=== PATIENT | female | born 1965 | race Caucasian/White ===

== ENCOUNTER 2022-07-28 07:58 | Outpatient (CLI) | payer OTHER, SELFPAY ==
--- NOTE | 2022-07-28 08:15 | CRLHL7_ITS ---
For Patients: As a result of the Cures Act, medical imaging exams and procedure reports are released immediately into your electronic medical record. You may view this report before your referring provider. If you have questions, please contact your health care provider. BILATERAL SCREENING MAMMOGRAM WITH COMPUTER-AIDED DETECTION AND TOMOSYNTHESIS TECHNIQUE: CC and MLO views were obtained. These mammographic images have been obtained using full-field digital technique. These mammographic images were interpreted with the benefit of computer-aided detection. Breast Tomosynthesis was used in this interpretation. COMPARISON FILM: 06/20/20, 05/09/19, 04/29/18. FINDINGS: There are scattered areas of fibroglandular density IMPRESSION: There is no radiographic evidence for malignancy. ASSESSMENT: BI-RADS Category 1: Negative RECOMMENDATION: Routine screening mammogram in 1 year. A lay language report of this examination will be provided to the patient. Albert Guerra M.D. Diagnostic Radiologist [email or web address] Transcribed: 2:48 p.mConstantino loredo/Dictated by: Albert Guerra MD @ 07/31/2022 9:30:00 AM (Electronically Signed)
== END 2022-07-28 07:59 | disposition home or self-care (01) ==
DX: Z12.31 Encounter for screening mammogram for malignant neoplasm of breast (principal)
CPT/HCPCS: 77063; 77067

== ENCOUNTER 2023-05-14 08:40 | Outpatient (CLI) | payer OTHER, SELFPAY ==
--- OUTSIDE RECORDS SUMMARY | 2023-05-15 10:46 | XMS_ITS | Clinical Summary ---
Author Name Unknown Organization [facility] Address [address] [place] [address] [place] [address] Care Team Providers Care Audit Officer Name Role Phone Margot Ortega PA-C Primary Care Provider + [facility] Allergies Active Allergy Reactions Criticality Noted Date Comments Ceftriaxone Rash Medium 05/20/2018 Ciprofloxacin Rash Medium 05/20/2018 Lisinopril Hives Medium 12/18/2015 Medications Medication Sig Dispensed Refills Start Date End Date Status NO MEDICATIONS 0 Active Active Problems Problem Noted Date Diagnosed Date Allergic rhinitis 05/13/2018 Degeneration of lumbar or lumbosacral interverte bral disc 05/13/2018 History of basal cell carcinoma (BCC) of skin Major depressive disorder, single episode 2012 Adjustment reaction 04/27/2009 Pure hypercholesterolemia 04/27/2009 Polycystic ovaries 04/27/2009 Female stress incontinence 04/27/2009 Essential hypertension 04/27/2009 Resolved Problems Problem Noted Date Diagnosed Date Resolved Date Basal cell carcinoma of skin 05/13/2018 05/13/2018 Immunizations Name Administration Dates Next Due Tdap >7 yrs 12/30/2009,05/26/2008 Family History Medical History Relation Comments Other Disease Brother Crohns Disease Diabetes Father Other Disease Father Pacemaker Breast Cancer Maternal Aunt Arthritis Mother Rheumatoid arthr itis Heart Disease Mother Cardiomyopathy Other Disease Mother Skin cancer Relation Status Comments Brother Father Maternal Aunt Alive Mother Social History Tobacco Use Types Packs/Day Years Used Date Smoking Tobacco: Never Smokeless Tobacco: Never Alcohol Use Standard Drinks/Week Comments Yes 0 (1 standard drink = 0.6 oz pur e alcohol) occasional Sex and Gender Information Value Date Recorded Sex Assigned at Not on file Gender Identity Not on file Sexual Orientation Not on file Last Filed Vital Signs Vital Sign Reading Time Taken Comments Blood Pressure 129/99 01/22/2023 12:55 PM CDT Pulse 95 01/22/2023 12:55 PM CDT Temperature 36.3 ??C (97.4 ??F) 01/22/2023 12:40 PM C DT Respiratory Rate 16 01/22/2023 12:55 PM CDT Oxygen Saturation 98% 01/22/2023 12:55 PM CDT Inhaled Oxygen Concentration - - Weight 65.8 kg (145 lb) 11/17/2022 11:41 AM CDT Height 160 cm (5' 3) 11/17/2022 11:41 AM CDT Body Mass Index 25.69 11/17/2022 11:41 AM CDT Plan of Treatment Health Maintenance Due Date Last Done Comments Hepatitis C Screening 1965 COVID-19 Vaccine (#1) 1966 Anxiety Screening (CONCEPCIÓN-2) 1967 Depression Follow-Up (PHQ-9) 1967 Zoster Vaccine (1 of 2) 2016 Pap Smear 12/20/2017 12/20/2012 (Prev iously completed) Lipid Screening 05/25/2018 05/25/2017 Adult Tetanus Booster 12/31/2019 12/30/2009, 009 Diabetes Screening 05/18/2021 05/18/2018, 0 05/25/2017, 01/21/2016 Mammogram Screening 06/20/2021 06/20/2020, 05/12/2019, 04/29/2018, Additional history exists Influenza Vaccine (#1) 2022 9 (Declined), 05/13/2018 (Declined) Yearly Review of HCD 10/21/2023 10/21/2022, 09/05/2022, 05/13/2018, Additional history exists Colonoscopy 01/22/2033 01/22/2023, 10/16/2022 Pneumococcal <65 Aged Out No longer e ligible based on patient's age to complete this topic Care Teams Audit Officer Relationship Specialty Start Date End Date Margot Ortega, PAAncaC [address] [place] [id number] PCP - General Family Medicine 10/16/22 [facility] [address] [place] [id number] PCP - Primary Care Clinic 05/06/23
--- OUTSIDE RECORDS SUMMARY | 2023-05-15 10:47 | XMS_ITS | Encounter Summary ---
Author Name Unknown Organization [facility] Address [address] [place] [address] [place] [address] Care Team Providers Care Picker Machine Operator Name Role Phone [facility] Margot Ortega PA-C Primary Care Provider + Reason for Referral * (Routine) - Open Specialty Diagnoses / Procedures Referred By Contac t Referred To Contact Procedures DIET INSTRUCTION Dewey Pollock MD [address] [place] [address] Dr Kaufman [facility] [place] [address] Referral ID Status Reason Start Date Expiration Date Visits Re quested Visits Authorized [id number] Open 01/22/2023 1 1 * (Routine) - Open Specialty Diagnoses / Procedures Referred By Contac t Referred To Contact Procedures No driving Dewey Pollock MD [address] [place] [address] [place] [address] Referral ID Status Reason Start Date Expiration Date Visits Re quested Visits Authorized [id number] Open 01/22/2023 1 1 * (Routine) - Open Specialty Diagnoses / Procedures Referred By Contac t Referred To Contact Procedures MEDICATIONS Dewey Pollock MD [address] [place] [address] [place] [address] Referral ID Status Reason Start Date Expiration Date Visits Re quested Visits Authorized [id number] Open 01/22/2023 1 1 * (Routine) - Open Specialty Diagnoses / Procedures Referred By Contac t Referred To Contact Procedures The Exam / Treatment you had Today Dewey Pollock MD [address] [place] [address] Dr Kaufman [facility] [place] [address] Referral ID Status Reason Start Date Expiration Date Visits Re quested Visits Authorized [id number] Open 01/22/2023 1 1 * (Routine) - Open Specialty Diagnoses / Procedures Referred By Contac t Referred To Contact Procedures Discharge Dewey Pollock MD [address] [place] [address] Dr Kaufman [facility] [place] [address] Referral ID Status Reason Start Date Expiration Date Visits Re quested Visits Authorized [id number] Open 01/22/2023 1 1 Encounter Details Date Type Department Care Team (Latest Contact Info) Description 01/22/2023 10:54 AM CDT - 01/22/2023 1:32 PM CDT Hospital Encounter [place] [address] [place] [address] Dewey Pollock MD [address] [place] [address] [place] [address] Discharge Disposition: Returning Home/Self Care Social History Tobacco Use Types Packs/Day Years Used Date Smoking Tobacco: Never Smokeless Tobacco: Never Alcohol Use Standard Drinks/Week Comments Yes 0 (1 standard drink = 0.6 oz pur e alcohol) occasional Sex and Gender Information Value Date Recorded Sex Assigned at Not on file Gender Identity Not on file Sexual Orientation Not on file documented as of this encounter Last Filed Vital Signs Vital Sign Reading [...] Mass Index 25.69 11/17/2022 11:41 AM CDT documented in this encounter Discharge Instructions * Discharge Instructions* Maria Guadalupe Bustillo RN - 01/22/2023 11:29 AM CDT POST COLONOSCOPY INSTRUCTIONS You have just completed your colonoscopy. Upon discharge, plan to go home and rest. Someone needs to drive you home because of the sedation used. Most patients are dehydrated and hungry. Continue to drink plenty of liquids, making sure it is notonly water. Eat a light meal and eat slowly. You may still have liquids stools for up to 2 days, or you may not have any stools for 2 days. If a biopsy or polyps were taken, you will receive a call in 1-2 weeks with the results. If any polyps were removed DO NOT take Aspirin, Ibuprofen, or blood thinning medications for 7 days. You make take Tylenol. You will be notified when it is time to schedule again. We recommend a daily fiber supplement to all of our patients. This is not a medication; rather it is an gbrg-yhu-xmglwdk supplement that everyone should take. Stay away from pill forms because they are expensive and contain other additives. We recommend Benefiber, Hydrocil, or freshly ground Goldenflax seed mixed with a large glass of water or juice in the morning. Questions or concerns can be directed to your physician at the following numbers: Chano Buchanan and Pooler: Call your provider for the following: Uncontrolled abdominal pain Fevers over 101 degrees Vomiting Black or bloody bowel movements documented in this encounter Medications at Time of Discharge Medication Sig Dispensed Refills Start Date End Date NO MEDICATIONS 0 documented as of this encounter Nursing Notes * Maria Guadalupe Bustillo RN - 01/22/2023 1:31 PM CDT Katlin Curtis 1965 [id number] Discharged ambulatory to home at 1331 escorted by father Discharge information and arrangements included: review of written discharge instructions Patient expressed understanding of information.. * Daphnie Kent RN - 11/17/2022 11:42 AM CDT RN reviewed hx in the EMR <1 yr old. MD to update and RN will review and verify DOS. documented in this encounter Plan of Treatment Not on file documented as of this encounter Procedures Procedure Name Priority Date/Time Associated Diagnosis Comments MS COLONOSCOPY FLX DX W/COLLJ SPEC WHEN PFRMD 01/22/2023 12:16 PM CDT Screen for colon cancer ASC COLONOSOPY 01/22/2023 12:11 PM CDT documented in this encounter Results * ASC COLONOSOPY (01/22/2023 12:11 PM CDT) 01/22/2023 12:1 1 PM CDT Narrative TEST - 01/23/2023 11:38 AM CDT Patient Name: Katlin Curtis Procedure Date: 01/22/2023 12:11 PM Date of : 1965 Attending MD: Dewey Pollock MD, Instrument Name: -10 Procedure: ? Colonoscopy Indications: ? High risk colon cancer surveillance: Personal history ? of colonic polyps Patient Profile: ? Last Colonoscopy: 5 years ago. Attempted colonscopy ? last Veronica but could not proceed due to inadequate prep. Providers: ? Dewey Pollock MD (Doctor) [address] ? [place] [address] Referring Provider ? Margot Kirby (Referring MD) Requesting Provider: ?? Medicines: ? See the Anesthesia note for documentation of the ? administered medications Complications: ? No immediate complications. Procedure: ? Pre-Anesthesia Assessment: ? - Prior to the procedure, a History and Physical was ? performed, and patient medications and allergies were ? reviewed. The patient is competent. The risks and ? benefits of the procedure and the sedation options and ? risks were discussed with the patient. All questions ? were answered and informed consent was obtained. ? Patient identification and proposed procedure were ? verified by the physician, the nurse, the manager knowledge ? and the health technician in the procedure room. Mental ? Status Examination: alert and oriented. Airway ? Examination: normal oropharyngeal airway and neck ? mobility. Respiratory Examination: clear to ? auscultation. CV Examination: normal. Prophylactic ? Antibiotics: The patient does not require prophylactic ? antibiotics. Prior Anticoagulants: The patient has ? taken no anticoagulant or antiplatelet agents. ASA ? Grade Assessment: II - A patient with mild systemic ? disease. After reviewing the risks and benefits, the ? patient was deemed in satisfactory condition to ? undergo the procedure. The anesthesia plan was to use ? monitored anesthesia care (MAC). Immediately prior to ? administration of medications, the patient was ? re-assessed for adequacy to receive sedatives. The ? heart rate, respiratory rate, oxygen saturations, ? blood pressure, adequacy of pulmonary ventilation, and ? response to care were monitored throughout the ? procedure. The physical status of the patient was ? re-assessed after the procedure. ? - After reviewing the risks and benefits, the patient ? was deemed in satisfactory condition to undergo the ? procedure. ? - in an ambulatory setting. ? - This assessment was completed at 12:00 PM, prior to ? the administration of sedation. ? - Patient was seen and evaluated during COVID- 19 ? pandemic. Current hospital procedure room guidelines ? specific to COVID-19 will be followed as indicated. ? After I obtained informed consent, the scope was ? passed under direct vision. Throughout the procedure, ? the patient's blood pressure, pulse, and oxygen ? saturations were monitored continuously. The ? Colonoscope was introduced through the anus and ? advanced to the cecum, identified by the appendiceal ? orifice, ileocecal valve and palpation. The ? colonoscopy was performed without difficulty. The ? patient tolerated the procedure well. Findings: ? The perianal and digital rectal examinations were normal. ? Medium-mouthed diverticula were found in the sigmoid colon and ? descending colon. Impression: ?- Diverticulosis in the sigmoid and descending colon. ? - No specimens collected. Recommendation: ?- Repeat colonoscopy in 10 years for screening ? purposes. ? - Return to primary care physician as previously ? scheduled. Dewey Pollock MD 01/23/2023 11:38:05 AM This report has been signed electronically.Dewey Pollock MD Number of Addenda: 0 Note Initiated On: 01/22/2023 12:11 PM Scope Withdrawal Time 0 hours 6 minutes 35 seconds Total Procedure Duration Time 0 hours 12 minutes 16 seconds Procedure Note Dewey Pollock MD - 01/27/2023 Patient Name: Katlin Curtis Procedure Date: 01/22/2023 12:11 PM Date of : 1965 Attending MD: Dewey Pollock MD, Instrument Name: -10 Procedure: Colonoscopy Indications: High risk colon cancer surveillance: Personalhistory of colonic polyps Patient Profile: Last Colonoscopy: 5 years ago. Attempted colonscopy last September but could not proceed due to inadequateprep. Providers: Dewey Pollock MD (Doctor) [address] [place] [address] [place] [address] Referring Provider Margot Kirby (Referring MD) Requesting Provider: Medicines: See the Anesthesia note for documentation of the administered medications Complications: No immediate complications. Procedure: Pre-Anesthesia Assessment: - Prior to the procedure, a History and Physicalwas performed, and patient medications and allergieswere reviewed. The patient is competent. The risks and benefits of the procedure and the sedation optionsand risks were discussed with the patient. Allquestions were answered and informed consent was obtained. Patient identification and proposed procedure were verified by the physician, the nurse, theanesthetist and the health technician in the procedure room. Mental Status Examination: alert and oriented. Airway Examination: normal oropharyngeal airway and neck mobility. Respiratory Examination: clear to auscultation. CV Examination: normal. Prophylactic Antibiotics: The patient does not requireprophylactic antibiotics. Prior Anticoagulants: The patient has taken no anticoagulant or antiplatelet agents. ASA Grade Assessment: II - A patient with mild systemic disease. After reviewing the risks and benefits,the patient was deemed in satisfactory condition to undergo the procedure. The anesthesia plan was touse monitored anesthesia care (MAC). Immediately priorto administration of medications, the patient was re-assessed for adequacy to receive sedatives. The heart rate, respiratory rate, oxygen saturations, blood pressure, adequacy of pulmonary ventilation,and response to care were monitored throughout the procedure. The physical status of the patient was re-assessed after the procedure. - After reviewing the risks and benefits, thepatient was deemed in satisfactory condition to undergo the procedure. - in an ambulatory setting. - This assessment was completed at 12:00 PM, priorto the administration of sedation. - Patient was seen and evaluated during COVID-19 pandemic. Current hospital procedure roomguidelines specific to COVID-19 will be followed asindicated. After I obtained informed consent, the scope was passed under direct vision. Throughout theprocedure, the patient's blood pressure, pulse, and oxygen saturations were monitored continuously. The Colonoscope was introduced through the anus and advanced to the cecum, identified by theappendiceal orifice, ileocecal valve and palpation. The colonoscopy was performed without difficulty. The patient tolerated the procedure well. Findings: The perianal and digital rectal examinations were normal. Medium-mouthed diverticula were found in the sigmoid colon and descending colon. Impression: - Diverticulosis in the sigmoid and descendingcolon. - No specimens collected. Recommendation: - Repeat colonoscopy in 10 years for screening purposes. - Return to primary care physician as previously scheduled. Dewey Pollock MD 01/23/2023 11:38:05 AM This report has been signed electronically.Dewey Pollock MD Number of Addenda: 0 Note Initiated On: 01/22/2023 12:11 PM Scope Withdrawal Time 0 hours 6 minutes 35 seconds Total Procedure Duration Time 0 hours 12 minutes 16 seconds Dewey Pollock MD PROCEDURE ORDERABLE TEST documented in this encounter Visit Diagnoses Not on filedocumented in this encounter Administered Medications Inactive Administered Medications - up to 3 most recent administrations Medication Order MAR Action Action Date Dose Rate Site atropine syringe 0.4 mg 0.4 mg, Intravenous, NEEDED, 1 dose, Starting on Rosita 01/22/23 at 1238, Until Rosita 01/22/23 at 193, Phase 1/2, bradycardia, for HR <50, with hypotension, give atropine 0.4mg IV. Notify anesthesiologist. dexAMETHasone (DECADRON) injection 4 mg 4 mg, Intravenous, ONCE NEEDED, 1 dose, Starting on Rosita 01/22/23 at 1238, Until Rosita 01/22/23 at 193, Phase 1/2, for allergic reaction diphenhydrAMINE (BENADRYL) injection 25 mg 25 mg, Intravenous, ONCE NEEDED, 1 dose, Starting on Rosita 01/22/23 at 1238, Until Rosita 01/22/23 at 193, Phase 1/2, for allergic reaction fentaNYL (SUBLIMAZE) injection 25-50 mcg 25-50 mcg, Intravenous, EVERY 5 MINUTES NEEDED, 18 doses, Starting on Rosita 01/22/23 at 1238, Until Rosita 01/22/23 at 193, Phase 1/2, for acute surgical pain. Up to 200 mcg. HYDROmorphone (DILAUDID) syringe 0.2-0.3 mg 0.2-0.3 mg, Intravenous, EVERY 5 MINUTES NEEDED, 2 doses, Starting on Rosita 01/22/23 at 1238, Until Rosita 01/22/23 at 193, Phase 1/2, For acute surgical pain. Up to 0.5mg hydrOXYzine pamoate (Vistaril) capsule 25-50 mg 25-50 mg, oral, NEEDED, Starting on Rosita 01/22/23 at 1238, Until Rosita 01/22/23 at 1931, Phase 12, For pain or nausea Intravenous Infuse IV fluids as ordered by surgeon, otherwise continue OR infusion @ 75-100 mL/hr until discontinued., Phase 12 labetaloL (NORMODYNE) injection 10 mg 10 mg, Intravenous, ONCE NEEDED, 1 dose, Starting on Thu01/22/23 at 1238, Until Thu01/22/23 at 1931, Phase 12, SBP>160 and HR>60, after adequate pain control. lactated Ringers (LR) IV infusion 500-1,000 mL at 25 mL/hr, Intravenous, CONTINUOUS, Starting on Thu01/22/23 at 1100, Until Thu01/22/23 at 1931 lactated Ringers (LR) IV infusion at 25 mL/hr, Intravenous, CONTINUOUS PRN, Starting on Rosita 01/22/23 at 1056, Until Thu01/22/23 at 1931 lidocaine / sod bicarb (buffered lidocaine) syringe for IV starts 0.1-0.3 mL 0.1-0.3 mL, Intradermal, NEEDED, Starting on Thu01/22/23 at 1056, Until Thu01/22/23 at 1931, IV line placement, IV start or restart lidocaine 1% injection (conc: 10 mg/mL) 6.6 mL 6.6 mL (rounded from 6.58 mL = 1 mg/kg ? 65.8 kg), Intravenous, ONCE NEEDED, 1 dose, Starting on Thu01/22/23 at 1238, Until Thu01/22/23 at 1931, Phase 12, Local Anesthesia, for severe coughing or stridor ( laryngospasm ) meperidine (preservative free) (DEMEROL) syringe 12.5 mg 12.5 mg, Intravenous, EVERY 5 MINUTES NEEDED, 2 doses, Starting on Thu01/22/23 at 1238, Until Rosita 01/22/23 at 193, Phase 12, for shivering, Do not user meperidine for pain control per recommendation of the [place] [employer], [place] [employer] Safe Medication Practices (ISMP) and the [place] [facility]. methocarbamoL (ROBAXIN) injection 1,000 mg 1,000 mg, Intravenous, ONCE NEEDED, 1 dose, Starting on Rosita 01/22/23 at 1238, Until Rosita 01/22/23 at 193, Phase 12, IV methocarbamol can be given for no more than 3 consecutive days. If additional IV methocarbamol is needed there should be a drug-free interval of 48 hours. midazolam (PF) (VERSED) injection 0.5-1 mg 0.5-1 mg, Intravenous, ONCE NEEDED, 1 dose, Starting on Rosita 01/22/23 at 1238, Until Rosita 01/22/23 at 193, Phase 12, for restlessness ondansetron (ZOFRAN) disintegrating tablet 4 mg 4 mg, oral, ONCE NEEDED, 2 doses, Starting on Rosita 01/22/23 at 1238, Until Rosita 01/22/23 at 193, Phase 2, nausea & vomiting ondansetron (ZOFRAN) injection 4 mg 4 mg, Intravenous, ONCE NEEDED, 2 doses, Starting on Rosita 01/22/23 at 1238, Until Rosita 01/22/23 at 193, Phase 2, nausea & vomiting saline with benzyl alcohol injection 0.1-0.3 mL 0.1-0.3 mL, Intradermal, NEEDED, Starting on Thu01/22/23 at 1056, Until Rosita 01/22/23 at 193, IV start or restart scopolamine 1mg/72 hours (1.5mg) (TRANSDERM-SCOP) patch 1 patch 1 patch, Transdermal, ONCE NEEDED, 1 dose, Starting on Thu01/22/23 at 1238, Until Rosita 01/22/23 at 193, Phase 12, for nausea. Remove in 24 hours. documented in this encounter Active and Recently Administered Medications Times are shown in CDT. Scheduled Medication Order 01/20/2023 01/21/2023 01/22/2023 Intravenous Infuse IV fluids as ordered by surgeon, otherwise continue OR infusion @ 75-100 mL/hr until discontinued., Phase 1/2 Continuous Medication Order 01/20/2023 01/21/2023 01/22/2023 lactated Ringers (LR) IV infusion 500-1,000 mL at 25 mL/hr, Intravenous, CONTINUOUS, Starting on Rosita 01/22/23 at 1100, Until Rosita 01/22/23 at 1932 1100 (Due) PRN Medication Order 01/20/2023 01/21/2023 01/22/2023 atropine syringe 0.4 mg 0.4 mg, Intravenous, NEEDED, 1 dose, Starting on Rosita 01/22/23 at 1238, Until Rosita 01/22/23 at 193, Phase 1/2, bradycardia, for HR <50, with hypotension, give atropine 0.4mg IV. Notify anesthesiologist. dexAMETHasone (DECADRON) injection 4 mg(Linked Group 1) 4 mg, Intravenous, ONCE NEEDED, 1 dose, Starting on Rosita 01/22/23 at 1238, Until Rosita 01/22/23 at 1931, Phase 1/2, for allergic reaction diphenhydrAMINE (BENADRYL) injection 25 mg(Linked Group 1) 25 mg, Intravenous, ONCE NEEDED, 1 dose, Starting on Rosita 01/22/23 at 1238, Until Rosita 01/22/23 at 193, Phase 1/2, for allergic reaction fentaNYL (SUBLIMAZE) injection 25-50 mcg 25-50 mcg, Intravenous, EVERY 5 MINUTES NEEDED, 18 doses, Starting on Rosita 01/22/23 at 1238, Until Rosita 01/22/23 at 193, Phase 1/2, for acute surgical pain. Up to 200 mcg. HYDROmorphone (DILAUDID) syringe 0.2-0.3 mg 0.2-0.3 mg, Intravenous, EVERY 5 MINUTES NEEDED, 2 doses, Starting on Rosita 01/22/23 at 1238, Until Rosita 01/22/23 at 193, Phase 1/2, For acute surgical pain. Up to 0.5mg hydrOXYzine pamoate (Vistaril) capsule 25-50 mg 25-50 mg, oral, NEEDED, Starting on Rosita 01/22/23 at 1238, Until Rosita 01/22/23 at 193, Phase 12, For pain or nausea labetaloL (NORMODYNE) injection 10 mg 10 mg, Intravenous, ONCE NEEDED, 1 dose, Starting on Rosita 01/22/23 at 1238, Until Rosita 01/22/23 at 1931, Phase 12, SBP>160 and HR>60, after adequate pain control. lactated Ringers (LR) IV infusion at 25 mL/hr, Intravenous, CONTINUOUS PRN, Starting on Thu01/22/23 at 1056, Until Rosita 01/22/23 at 1931 lidocaine / sod bicarb (buffered lidocaine) syringe for IV starts 0.1-0.3 mL 0.1-0.3 mL, Intradermal, NEEDED, Starting on Thu01/22/23 at 1056, Until Thu01/22/23 at 1931, IV line placement, IV start or restart lidocaine 1% injection (conc: 10 mg/mL) 6.6 mL 6.6 mL (rounded from 6.58 mL = 1 mg/kg ? 65.8 kg), Intravenous, ONCE NEEDED, 1 dose, Starting on Rosita 01/22/23 at 1238, Until Rosita 01/22/23 at 1931, Phase 2, Local Anesthesia, for severe coughing or stridor ( laryngospasm ) meperidine (preservative free) (DEMEROL) syringe 12.5 mg 12.5 mg, Intravenous, EVERY 5 MINUTES NEEDED, 2 doses, Starting on Rosita 01/22/23 at 1238, Until Rosita 01/22/23 at 1931, Phase 04/28, for shivering, Do not user meperidine for pain control per recommendation of the [place] [employer], [place] [employer] Safe [employer]ication Practices (ISMP) and the [place] [facility]. methocarbamoL (ROBAXIN) injection 1,000 mg 1,000 mg, Intravenous, ONCE NEEDED, 1 dose, Starting on Rosita 01/22/23 at 1238, Until Thu01/22/23 at 1931, Phase 12, IV methocarbamol can be given for no more than 3 consecutive days. If additional IV methocarbamol is needed there should be a drug-free interval of 48 hours. midazolam (PF) (VERSED) injection 0.5-1 mg 0.5-1 mg, Intravenous, ONCE NEEDED, 1 dose, Starting on Thu01/22/23 at 1238, Until Thu01/22/23 at 193, Phase 1/2, for restlessness ondansetron (ZOFRAN) disintegrating tablet 4 mg(Linked Group 2) 4 mg, oral, ONCE NEEDED, 2 doses, Starting on Thu01/22/23 at 1238, Until Thu01/22/23 at 193, Phase 12, nausea & vomiting ondansetron (ZOFRAN) injection 4 mg(Linked Group 2) 4 mg, Intravenous, ONCE NEEDED, 2 doses, Starting on Thu01/22/23 at 1238, Until Thu01/22/23 at 1931, Phase 12, nausea & vomiting saline with benzyl alcohol injection 0.1-0.3 mL 0.1-0.3 mL, Intradermal, NEEDED, Starting on Thu01/22/23 at 1056, Until Thu01/22/23 at 193, IV start or restart scopolamine 1mg/72 hours (1.5mg) (TRANSDERM-SCOP) patch 1 patch 1 patch, Transdermal, ONCE NEEDED, 1 dose, Starting on Thu01/22/23 at 1238, Until Thu01/22/23 at 1931, Phase 12, for nausea. Remove in 24 hours. Linked Groups Order Group 1: diphenhydrAMINE (BENADRYL) injection 25 mgJump to med 25 mg, Intravenous, ONCE NEEDED, 1 dose, Starting on Thu01/22/23 at 1238, Until Thu01/22/23 at 1931, Phase 12, for allergic reaction And dexAMETHasone (DECADRON) injection 4 mgJump to med 4 mg, Intravenous, ONCE NEEDED, 1 dose, Starting on Thu01/22/23 at 1238, Until Thu01/22/23 at 1931, Phase 12, for allergic reaction Group 2: ondansetron (ZOFRAN) injection 4 mgJump to med 4 mg, Intravenous, ONCE NEEDED, 2 doses, Starting on Thu01/22/23 at 1238, Until Thu01/22/23 at 193, Phase 1/2, nausea & vomiting Or ondansetron (ZOFRAN) disintegrating tablet 4 mgJump to med 4 mg, oral, ONCE NEEDED, 2 doses, Starting on Rosita 01/22/23 at 1238, Until Rosita 01/22/23 at 1932, Phase 1/2, nausea & vomiting documented in this encounter Care Teams Picker Machine Operator Relationship Specialty Start Date End Date Clinic[facility] PCP - Primary Care Clinic Family Medicine 05/13/1805/05 Margot Ortega PA-C [address] [place] [address] PCP - General Family Medicine 10/16/22 documented as of this encounter
--- OUTSIDE RECORDS SUMMARY | 2023-05-15 10:47 | XMS_ITS | Encounter Summary ---
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 Name Role Phone [facility] Margot Ortega PA-C Primary Care Provider + Reason for Referral * (Routine) - Open Specialty Diagnoses / Procedures Referred By Idalia mckeon Referred To Contact Dewey Pollock MD [address] [place] [address] [place] [address] Dewey Pollock MD [address] [place] [address] Dr Kaufman [facility] [address] Referral ID Status Reason Start Date Expiration Date Visits Re quested Visits Authorized [id number] Open 10/16/2022 1 1 Question Answer Specify time frame for follow up? As needed Instructions to follow-up provider reschedule colonoscopy due to poor prep Comments Reschedule colonoscopy due to poor prep. * (Routine) - Open Specialty Diagnoses / Procedures Referred By Idalia mckeon Referred To Contact Procedures DIET INSTRUCTION Dewey Pollock MD [address] [place] [address] [place] [address] Referral ID Status Reason Start Date Expiration Date Visits Re quested Visits Authorized [id number] Open 10/16/2022 1 1 * (Routine) - Open Specialty Diagnoses / Procedures Referred By Contac t Referred To Contact Procedures No driving Dewey Pollock MD [address] [place] [address] Dr Kaufman [facility] [address] Referral ID Status Reason Start Date Expiration Date Visits Re quested Visits Authorized [id number] Open 10/16/2022 1 1 * (Routine) - Open Specialty Diagnoses / Procedures Referred By Contac t Referred To Contact Procedures MEDICATIONS Dewey Pollock MD [address] [place] [address] Dr Kaufman [facility] [address] Referral ID Status Reason Start Date Expiration Date Visits Re quested Visits Authorized [id number] Open 10/16/2022 1 1 * (Routine) - Open Specialty Diagnoses / Procedures Referred By Contac t Referred To Contact Procedures The Exam / Treatment you had Today Dewey Pollock MD [address] [place] [address] Dr Kaufman [facility] [address] Referral ID Status Reason Start Date Expiration Date Visits Re quested Visits Authorized [id number] Open 10/16/2022 1 1 * (Routine) - Open Specialty Diagnoses / Procedures Referred By Contac t Referred To Contact Procedures Discharge Dewey Pollock MD [address] [place] [place] [address] Dr Kaufman [facility] [address] Referral ID Status Reason Start Date Expiration Date Visits Re quested Visits Authorized [id number] Open 10/16/2022 1 1 Encounter Details Date Type Department Care Team (Latest Contact Info) Description 10/16/2022 11:09 AM CDT - 10/16/2022 1:35 PM CDT Hospital Encounter [facility] [place] [address] [place] [address] Dewey Pollock MD [address] [facility] [address] [place] [address] Discharge Disposition: Returning Home/Self Care Social History [...] Sign Reading Time Taken Comments Blood Pressure 148/91 10/16/2022 1:20 PM CDT Pulse 64 10/16/2022 1:20 PM CDT Temperature 36.6 ??C (97.8 ??F) 10/16/2022 1:20 PM CD T Respiratory Rate 16 10/16/2022 1:20 PM CDT Oxygen Saturation 100% 10/16/2022 1:20 PM CDT Inhaled Oxygen Concentration - - Weight 65.8 kg (145 lb) 10/09/2022 8:47 AM CDT Height 160 cm (5' 3) 10/09/2022 8:47 AM CDT Body Mass Index 25.69 10/09/2022 8:47 AM CDT documented in this encounter Discharge Instructions * Discharge Instructions* Ayah Pearson RN - 10/16/2022 12:40 PM CDT POST COLONOSCOPY INSTRUCTIONS You have just [...] not a medication; rather it is an eudb-tkg-zaluade supplement that everyone should take. Stay away from pill forms because they are expensive and contain other additives. We recommend Benefiber, Hydrocil, or freshly ground Goldenflax seed mixed with a large glass of water or juice in the morning. Questions or concerns can be directed to your physician at the following numbers: Dr. Caruso, Chano Wesley, and Tyesha: [facility]: Dr. Love: [facility]: Call your provider for the following: Uncontrolled abdominal pain Fevers over 101 degrees Vomiting Black or bloody bowel movements documented in this encounter Medications at Time of Discharge Medication Sig Dispensed Refills Start Date End Date NO MEDICATIONS 0 documented as of this encounter Nursing Notes * Ayah Pearson RN - 10/16/2022 1:35 PM CDT Katlin Be Ever 1965 [id number] Discharged ambulatory to home at 1335 escorted by nurse Discharge information and arrangements included: review of written discharge instructions, belongings list completed. Patient, father expressed understanding of information.. * Ayah Pearson RN - 10/16/2022 12:45 PM CDT Pt brought to Phase 2 via cart. Vital signs stable. Pt had a brief episode of reporting not being able to breathe and felt like throat was closing up. Called [facility] to assess and symptoms resolved within a minute. Pt able to swallow without difficulty. Vital signs stable. Will continue to monitor. * Daphnie Kent RN - 10/09/2022 8:48 AM CDT RN reviewed hx in the EMR <1 yr old. MD to update and RN will review and verify DOS. documented in this encounter Plan of Treatment Scheduled Orders Name Type Priority Associated Diagnoses Orde r Schedule Test - UPT ([facility]) Lab Routine Once for 1 Occurrences starting 10/16/2022 until 10/16/2022 Scheduled Referrals Name Type Priority Associated Diagnoses Orde r Schedule Follow Up Follow Up Routine Ordered: 10/16 documented as of this encounter Procedures Procedure Name Priority Date/Time Associated Diagnosis Comments LA COLONOSCOPY FLX DX W/COLLJ SPEC WHEN PFRMD 10/16/2022 12:20 PM CDT Screening for colon cancer [facility] COLONOSOPY Routine 10/16/2022 12:12 PM CDT documented in this encounter Results * ASC Colonoscopy (10/16/2022 12:12 PM CDT) 10/16/2022 12:1 2 PM CDT Narrative TEST - 10/16/2022 1:19 PM CDT Patient Name: Katlin Curtis Procedure Date: 10/16/2022 12:12 PM Date of : 1965 Attending MD: Dewey Pollock MD Instrument Name: 09 Procedure: ? Colonoscopy Indications: ? High risk colon cancer surveillance: Personal history ? of colonic polyps Patient Profile: ? Last Colonoscopy: 5 years ago. Providers: ? Dewey Pollock MD (Doctor) [address] [place] [address] Dr K[address]man [address] ? [place] [address] Referring Provider ? Margot Kirby (Referring MD) [...] were ? verified by the physician, the nurse and the ? mechanical laboratory technician in the procedure room. Mental Status ? Examination: alert and oriented. Airway Examination: ? normal oropharyngeal airway and neck mobility. ? Respiratory Examination: clear to auscultation. CV ? Examination: normal. Prophylactic Antibiotics: The ? patient does not require prophylactic antibiotics. ? Prior Anticoagulants: The patient has taken no ? anticoagulant or antiplatelet agents. ASA Grade ? Assessment: II - A patient with mild systemic disease. ? After reviewing the risks and benefits, the patient ? was deemed in satisfactory condition to undergo the ? procedure. The anesthesia plan was to use monitored ? anesthesia care (MAC). Immediately prior to ? administration of medications, the patient was ? re-assessed for adequacy to receive sedatives. The ? heart rate, respiratory rate, oxygen saturations, ? blood pressure, adequacy of pulmonary ventilation, and ? response to care were monitored throughout the ? procedure. The physical status of the patient was ? re-assessed after the procedure. ? - This assessment was completed at 11:40 AM, prior to ? the administration of sedation. ? - After reviewing the risks and benefits, the patient ? was deemed in satisfactory condition to undergo the ? procedure. ? - in an ambulatory setting. ? - Patient was seen and evaluated [...] ? Colonoscope was introduced through the anus with the ? intention of advancing to the cecum. The scope was ? advanced to the hepatic flexure before the procedure ? was aborted. Medications were given. The colonoscopy ? was performed without difficulty. The patient ? tolerated the procedure well. The quality of the bowel ? preparation was inadequate. The colonoscopy was ? aborted due to inadequate bowel prep. Findings: ? The perianal and digital rectal examinations were normal. The remainder ? of the study was inadequate for diagnosis due to a poor prep. Impression: ?- Preparation of the colon was inadequate. ? - The procedure was aborted due to inadequate bowel ? prep. ? - No specimens collected. Recommendation: ?- Repeat colonoscopy at appointment to be scheduled ? because the bowel preparation was poor. ? - Return to primary care physician as previously ? scheduled. Dewey Pollock MD 10/16/2022 1:19:49 PM This report has been signed electronically.Dewey Pollock MD Number of Addenda: 0 Note Initiated On: 10/16/2022 12:12 PM Total Procedure Duration Time 0 hours 7 minutes 42 seconds Procedure Note Dewey Pollock MD - 10/16/2022 Patient Name: Katlin Curtis Procedure Date: 10/16/2022 12:12 PM Date of : 1965 Attending MD: Dewey Pollock MD Instrument Name: 09 Procedure: Colonoscopy Indications: High risk colon cancer surveillance: Personalhistory of colonic polyps Patient Profile: Last Colonoscopy: 5 years ago. Providers: Dewey Pollock MD (Doctor) [address] [place] [address] Dr [address] [place] [address] Referring Provider Margot Kirby (Referring MD) Requesting [...] procedure were verified by the physician, the nurse and the mechanical laboratory technician in the procedure room. Mental Status Examination: alert and oriented. AirwayExamination: normal oropharyngeal airway and neck mobility. Respiratory Examination: clear to auscultation. CV Examination: normal. Prophylactic Antibiotics: The patient does not require prophylactic antibiotics. Prior Anticoagulants: The patient has taken no anticoagulant or antiplatelet agents. ASA Grade Assessment: II - A patient with mild systemicdisease. After reviewing the risks and benefits, the patient was deemed in satisfactory condition to undergo the procedure. The anesthesia plan was to use monitored anesthesia care (MAC). Immediately prior to administration of medications, the patient was re-assessed for adequacy to receive sedatives. The heart rate, respiratory rate, oxygen saturations, blood pressure, adequacy of pulmonary ventilation,and response to care were monitored throughout the procedure. The physical status of the patient was re-assessed after the procedure. - This assessment was completed at 11:40 AM, priorto the administration of sedation. - After reviewing the risks and benefits, thepatient was deemed in satisfactory condition to undergo the procedure. - in an ambulatory setting. - Patient was seen and evaluated during COVID-19 pandemic. Current hospital procedure roomguidelines specific to COVID-19 will be followed asindicated. After I obtained informed consent, the scope was passed under direct vision. Throughout theprocedure, the patient's blood pressure, pulse, and oxygen saturations were monitored continuously. The Colonoscope was introduced through the anus withthe intention of advancing to the cecum. The scope was advanced to the hepatic flexure before theprocedure was aborted. Medications were given. Thecolonoscopy was performed without difficulty. The patient tolerated the procedure well. The quality of thebowel preparation was inadequate. The colonoscopy was aborted due to inadequate bowel prep. Findings: The perianal and digital rectal examinations were normal. Theremainder of the study was inadequate for diagnosis due to a poor prep. Impression: - Preparation of the colon was inadequate. - The procedure was aborted due to inadequate bowel prep. - No specimens collected. Recommendation: - Repeat colonoscopy at appointment to be scheduled because the bowel preparation was poor. - Return to primary care physician as previously scheduled. Dewey Pollock MD 10/16/2022 1:19:49 PM This report has been signed electronically.Dewey Pollock MD Number of Addenda: 0 Note Initiated On: 10/16/2022 12:12 PM Total Procedure Duration Time 0 hours 7 minutes 42 seconds Dewey Pollock MD PROCEDURE ORDERABLE TEST documented in this encounter Visit Diagnoses Not on filedocumented in this encounter Administered Medications Inactive Administered Medications - up to 3 most recent administrations Medication Order MAR Action Action Date Dose Rate Site atropine syringe 0.4 mg 0.4 mg, Intravenous, NEEDED, 1 dose, Starting on [facility] 10/16/22 at 1240, Until [facility] 10/16/22 at 1948, Phase 1/2, bradycardia, for HR <50, with hypotension, give atropine 0.4mg IV. Notify anesthesiologist. dexAMETHasone (DECADRON) injection 4 mg 4 mg, Intravenous, ONCE NEEDED, 1 dose, Starting on [facility] 10/16/22 at 1240, Until [facility] 10/16/22 at 1948, Phase 1/2, for allergic reaction diphenhydrAMINE (BENADRYL) injection 25 mg 25 mg, Intravenous, ONCE NEEDED, 1 dose, Starting on [facility] 10/16/22 at 1240, Until [facility] 10/16/22 at 1948, Phase 1/2, for allergic reaction fentaNYL (SUBLIMAZE) injection 25-50 mcg 25-50 mcg, Intravenous, EVERY 5 MINUTES NEEDED, 18 doses, Starting on [facility] 10/16/22 at 1240, Until [facility] 10/16/22 at 1948, Phase 1/2, for acute surgical pain. Up to 200 mcg. HYDROmorphone (DILAUDID) syringe 0.2-0.3 mg 0.2-0.3 mg, Intravenous, EVERY 5 MINUTES NEEDED, 2 doses, Starting on [facility] 10/16/22 at 1240, Until [facility] 10/16/22 at 1947, Phase 12, For acute surgical pain. Up to 0.5mg hydrOXYzine pamoate (Vistaril) capsule 25-50 mg 25-50 mg, oral, NEEDED, Starting on [facility] 10/16/22 at 1240, Until [facility] 10/16/22 at 1947, Phase 1, For pain or nausea Intravenous Infuse IV fluids as ordered by surgeon, otherwise continue OR infusion @ 75-100 mL/hr until discontinued., Phase 12 labetaloL (NORMODYNE) injection 10 mg 10 mg, Intravenous, ONCE NEEDED, 1 dose, Starting on [facility] 10/16/22 at 1240, Until [facility] 10/16/22 at 1947, Phase 2, SBP>160 and HR>60, after adequate pain control. lactated Ringers (LR) IV infusion 500-1,000 mL at 25 mL/hr, Intravenous, CONTINUOUS, Starting on [facility] 10/16/22 at 1115, Until [facility] 10/16/22 at 1947 lactated Ringers (LR) IV infusion at 25 mL/hr, Intravenous, CONTINUOUS PRN, Starting on [facility] 10/16/22 at 1114, Until [facility] 10/16/22 at 1947 lidocaine / sod bicarb (buffered lidocaine) syringe for IV starts 0.1-0.3 mL 0.1-0.3 mL, Intradermal, NEEDED, Starting on [facility] 10/16/22 at 1114, Until [facility] 10/16/22 at 1947, IV line placement, IV start or restart lidocaine 1% injection (conc: 10 mg/mL) 6.6 mL 6.6 mL (rounded from 6.58 mL = 1 mg/kg ? 65.8 kg), Intravenous, ONCE NEEDED, 1 dose, Starting on [facility] 10/16/22 at 1240, Until [facility] 10/16/22 at 1947, Phase 12, Local Anesthesia, for severe coughing or stridor ( laryngospasm ) meperidine (preservative free) (DEMEROL) syringe 12.5 mg 12.5 mg, Intravenous, EVERY 5 MINUTES NEEDED, 2 doses, Starting on [facility] 10/16/22 at 1240, Until [facility] 10/16/22 at 1948, Phase 12, for shivering, Do not user meperidine for pain control per recommendation of the [place] [employer], [place] [employer] Safe Medication Pract[employer] (ISMP) and the [place] [facility]. methocarbamoL (ROBAXIN) injection 1,000 mg 1,000 mg, Intravenous, ONCE NEEDED, 1 dose, Starting on [facility] 10/16/22 at 1240, Until [facility] 10/16/22 at 1948, Phase 12, IV methocarbamol can be given for no more than 3 consecutive days. If additional IV methocarbamol is needed there should be a drug-free interval of 48 hours. midazolam (PF) (VERSED) injection 0.5-1 mg 0.5-1 mg, Intravenous, ONCE NEEDED, 1 dose, Starting on [facility] 10/16/22 at 1240, Until [facility] 10/16/22 at 1948, Phase 12, for restlessness ondansetron (ZOFRAN) disintegrating tablet 4 mg 4 mg, oral, ONCE NEEDED, 2 doses, Starting on [facility] 10/16/22 at 1240, Until [facility] 10/16/22 at 1948, Phase 12, nausea & vomiting ondansetron (ZOFRAN) injection 4 mg 4 mg, Intravenous, ONCE NEEDED, 2 doses, Starting on [facility] 10/16/22 at 1240, Until [facility] 10/16/22 at 1948, Phase 12, nausea & vomiting saline with benzyl alcohol injection 0.1-0.3 mL 0.1-0.3 mL, Intradermal, NEEDED, Starting on [facility] 10/16/22 at 1114, Until [facility] 10/16/22 at 1948, IV start or restart scopolamine 1mg/72 hours (1.5mg) (TRANSDERM-SCOP) patch 1 patch 1 patch, Transdermal, ONCE NEEDED, 1 dose, Starting on [facility] 10/16/22 at 1240, Until [facility] 10/16/22 at 1948, Phase 12, for nausea. Remove in 24 hours. documented in this encounter Active and Recently Administered Medications Times are shown in CDT. Scheduled Medication Order 10/14/2022 10/15/2022 10/16/2022 Intravenous Infuse IV fluids as ordered by surgeon, otherwise continue OR infusion @ 75-100 mL/hr until discontinued., Phase 1/2 Continuous Medication Order 10/14/2022 10/15/2022 10/16/2022 lactated Ringers (LR) IV infusion 500-1,000 mL at 25 mL/hr, Intravenous, CONTINUOUS, Starting on [facility] 10/16/22 at 1115, Until [facility] 10/16/22 at 1948 1115 (Due) PRN Medication Order 10/14/2022 10/15/2022 10/16/2022 atropine syringe 0.4 mg 0.4 mg, Intravenous, NEEDED, 1 dose, Starting on [facility] 10/16/22 at 1240, Until [facility] 10/16/22 at 194, Phase 1/2, bradycardia, for HR <50, with hypotension, give atropine 0.4mg IV. Notify anesthesiologist. dexAMETHasone (DECADRON) injection 4 mg(Linked Group 1) 4 mg, Intravenous, ONCE NEEDED, 1 dose, Starting on [facility] 10/16/22 at 1240, Until [facility] 10/16/22 at 194, Phase 1/2, for allergic reaction diphenhydrAMINE (BENADRYL) injection 25 mg(Linked Group 1) 25 mg, Intravenous, ONCE NEEDED, 1 dose, Starting on [facility] 10/16/22 at 1240, Until [facility] 10/16/22 at 1948, Phase 1/2, for allergic reaction fentaNYL (SUBLIMAZE) injection 25-50 mcg 25-50 mcg, Intravenous, EVERY 5 MINUTES NEEDED, 18 doses, Starting on [facility] 10/16/22 at 1240, Until [facility] 10/16/22 at 1948, Phase 1/2, for acute surgical pain. Up to 200 mcg. HYDROmorphone (DILAUDID) syringe 0.2-0.3 mg 0.2-0.3 mg, Intravenous, EVERY 5 MINUTES NEEDED, 2 doses, Starting on [facility] 10/16/22 at 1240, Until [facility] 10/16/22 at 1948, Phase 1/2, For acute surgical pain. Up to 0.5mg hydrOXYzine pamoate (Vistaril) capsule 25-50 mg 25-50 mg, oral, NEEDED, Starting on [facility] 10/16/22 at 1240, Until [facility] 10/16/22 at 194, Phase 12, For pain or nausea labetaloL (NORMODYNE) injection 10 mg 10 mg, Intravenous, ONCE NEEDED, 1 dose, Starting on [facility] 10/16/22 at 1240, Until [facility] 10/16/22 at 1947, Phase 1/2, SBP>160 and HR>60, after adequate pain control. lactated Ringers (LR) IV infusion at 25 mL/hr, Intravenous, CONTINUOUS PRN, Starting on [facility] 10/16/22 at 1114, Until [facility] 10/16/22 at 194 lidocaine / sod bicarb (buffered lidocaine) syringe for IV starts 0.1-0.3 mL 0.1-0.3 mL, Intradermal, NEEDED, Starting on [facility] 10/16/22 at 1114, Until [facility] 10/16/22 at 194, IV line placement, IV start or restart lidocaine 1% injection (conc: 10 mg/mL) 6.6 mL 6.6 mL (rounded from 6.58 mL = 1 mg/kg ? 65.8 kg), Intravenous, ONCE NEEDED, 1 dose, Starting on [facility] 10/16/22 at 1240, Until [facility] 10/16/22 at 1947, Phase 12, Local Anesthesia, for severe coughing or stridor ( laryngospasm ) meperidine (preservative free) (DEMEROL) syringe 12.5 mg 12.5 mg, Intravenous, EVERY 5 MINUTES NEEDED, 2 doses, Starting on [facility] 10/16/22 at 1240, Until [facility] 10/16/22 at 1947, Phase 12, for shivering, Do not user meperidine for pain control per recommendation of the [place] [employer], [employer] [employer]ication Pract[employer] (ISMP) and the [place] [facility]. methocarbamoL (ROBAXIN) injection 1,000 mg 1,000 mg, Intravenous, ONCE NEEDED, 1 dose, Starting on [facility] 10/16/22 at 1240, Until [facility] 10/16/22 at 194, Phase 12, IV methocarbamol can be given for no more than 3 consecutive days. If additional IV methocarbamol is needed there should be a drug-free interval of 48 hours. midazolam (PF) (VERSED) injection 0.5-1 mg 0.5-1 mg, Intravenous, ONCE NEEDED, 1 dose, Starting on Thu10/16/22 at 1240, Until Thu10/16/22 at 194, Phase 12, for restlessness ondansetron (ZOFRAN) disintegrating tablet 4 mg(Linked Group 2) 4 mg, oral, ONCE NEEDED, 2 doses, Starting on Thu10/16/22 at 1240, Until Thu10/16/22 at 1947, Phase 12, nausea & vomiting ondansetron (ZOFRAN) injection 4 mg(Linked Group 2) 4 mg, Intravenous, ONCE NEEDED, 2 doses, Starting on Thu10/16/22 at 1240, Until Thu10/16/22 at 1947, Phase 2, nausea & vomiting saline with benzyl alcohol injection 0.1-0.3 mL 0.1-0.3 mL, Intradermal, NEEDED, Starting on Thu10/16/22 at 1114, Until Thu10/16/22 at 1947, IV start or restart scopolamine 1mg/72 hours (1.5mg) (TRANSDERM-SCOP) patch 1 patch 1 patch, Transdermal, ONCE NEEDED, 1 dose, Starting on Thu10/16/22 at 1240, Until Thu10/16/22 at 1947, Phase 04/28, for nausea. Remove in 24 hours. Linked Groups Order Group 1: diphenhydrAMINE (BENADRYL) injection 25 mgJump to med 25 mg, Intravenous, ONCE NEEDED, 1 dose, Starting on Thu10/16/22 at 1240, Until [facility] 10/16/22 at 1947, Phase 12, for allergic reaction And dexAMETHasone (DECADRON) injection 4 mgJump to med 4 mg, Intravenous, ONCE NEEDED, 1 dose, Starting on Thu10/16/22 at 1240, Until Thu10/16/22 at 1947, Phase 12, for allergic reaction Group 2: ondansetron (ZOFRAN) injection 4 mgJump to med 4 mg, Intravenous, ONCE NEEDED, 2 doses, Starting on [facility] 6/22/23 at 1240, Until [facility] 10/16/22 at 1948, Phase 1/2, nausea & vomiting Or ondansetron (ZOFRAN) disintegrating tablet 4 mgJump to med 4 mg, oral, ONCE NEEDED, 2 doses, Starting on [facility] 10/16/22 at 1240, Until [facility] 10/16/22 at 1948, Phase 1/2, nausea & vomiting documented in this encounter Care Teams Carbon 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
--- OUTSIDE RECORDS SUMMARY | 2023-05-15 10:47 | XMS_ITS | Encounter Summary ---
Author Name Unknown Organization [facility] Address [address] [place] [address] Care Team Providers Care Provider Relations Manager Name Role Phone [facility] Margot Ortega PA-C Primary Care Provider + Encounter Details Date Type Department Care Team (Late st Contact Info) Description 01/22/2023 12:00 PM CDT - 01/22/2023 12:45 PM CDT Surgery [facility] [place] [facility] [place] [address] [place] [address] Dewey Pollock MD [address] [place] [address] Dr Kaufman [address] [place] [id number] COLONOSCOPY Surgery Details Date/Time Status Location OR Service Patient Class Case Class Case Type Trauma Case? 01/22/23 12:00 PM Posted [facility] ORS 07 Gastroenterology Same Day Surgery Panel 1 Procedure LRB Anes Op Region Wound Class Comments COLONOSCOPY N/A MAC Gastrointestinal Surgeon Surgeon Role Service Panel Dewey Pollock MD Primary Gastroenterology 1 documented in this encounter Social History Tobacco Use Types Packs/Day Years [...] Sign Reading Time Taken Comments Blood Pressure 123/87 01/22/2023 12:40 PM CDT Pulse 99 01/22/2023 12:40 PM CDT Temperature 36.3 ??C (97.4 ??F) 01/22/2023 12:40 PM C DT Respiratory Rate 16 01/22/2023 12:40 PM CDT Oxygen Saturation 99% 01/22/2023 12:40 PM CDT Inhaled Oxygen Concentration - - [...] not a medication; rather it is an azua-pcl-gingppp supplement that everyone should take. Stay away from pill forms because they are expensive and contain other additives. We recommend Benefiber, Hydrocil, or freshly ground Goldenflax seed mixed with a large glass of water or juice in the morning. Questions or concerns can be directed to your physician at the following numbers: Dr. Caruso, Sanam Reyes: Call your provider for the following: Uncontrolled abdominal pain Fevers over 101 degrees Vomiting Black or bloody bowel movements documented in this encounter Medications at Time of Discharge Medication Sig Dispensed Refills Start Date End Date NO MEDICATIONS 0 documented as of this encounter Nursing Notes * Maria Guadalupe Bustillo RN - 01/22/2023 1:31 PM CDT Katlin Curtis 1965 [phone] Discharged ambulatory to home at 1331 escorted [...] Procedure Name Priority Date/Time Associated Diagnosis Comments [place] COLONOSCOPY FLX DX W/COLLJ SPEC WHEN PFRMD [...] prep. Providers: ? Dewey Pollock MD (Doctor) [address] ? [place] [address] Referring Provider ? Margot Kirby (Referring ) Requesting Provider: ?? Medicines: ? See the [...] verified by the physician, the nurse, the medical record coder ? and the sow farm barn technician in the procedure room. Mental ? [...] to inadequateprep. Providers: Dewey Pollock MD (Doctor) [address] [place] [address] [place] [address] Referring Provider Margot Kirby (Referring MD) Requesting [...] the physician, the nurse, theanesthetist and the sow farm barn technician in the procedure room. Mental Status [...] TEST documented in this encounter Visit Diagnoses Diagnosis Screen for colon cancer Special screening for malignant neoplasms, colon documented in this encounter Administered Medications Inactive Administered Medications - up to 3 most recent administrations Medication Order MAR Action Action Date Dose Rate Site atropine syringe 0.4 mg 0.4 mg, Intravenous, NEEDED, 1 dose, Starting on Thu01/22/23 at [...] @ 75-100 mL/hr until discontinued., Phase 1/2 labetaloL (NORMODYNE) injection 10 mg 10 mg, Intravenous, ONCE NEEDED, 1 dose, Starting on Rosita 01/22/23 at 1238, Until Thu01/22/23 at 1931, Phase 12, SBP>160 and HR>60, after adequate pain control. lactated Ringers (LR) IV infusion 500-1,000 mL at 25 mL/hr, Intravenous, CONTINUOUS, Starting on Thu01/22/23 at 1100, Until Rosita 01/22/23 at 1931 lactated Ringers (LR) IV infusion at 25 mL/hr, Intravenous, CONTINUOUS PRN, Starting on Rosita 01/22/23 at 1056, Until Rosita 01/22/23 at 1931 [...] at 1238, Until Thu01/22/23 at 1931, Phase 1/2, Local Anesthesia, for severe coughing or stridor ( laryngospasm ) meperidine (preservative free) (DEMEROL) syringe 12.5 mg 12.5 mg, Intravenous, EVERY 5 MINUTES NEEDED, 2 doses, Starting on Rosita 01/22/23 at 1238, Until Rosita 01/22/23 at 193, Phase 12, for shivering, Do not user meperidine for pain control per recommendation of the [place] [employer], [place] for Safe Medication Practices (ISMP) and the [facility]. methocarbamoL (ROBAXIN) injection 1,000 mg [...] Until Rosita 01/22/23 at 193, Phase 2, for restlessness ondansetron (ZOFRAN) disintegrating tablet 4 mg 4 mg, oral, ONCE NEEDED, 2 doses, Starting on Rosita 01/22/23 at 1238, Until Rsoita 01/22/23 at 193, Phase 12, nausea & vomiting [...] Until Rosita 01/22/23 at 193, Phase 12, bradycardia, for HR <50, with hypotension, give [...] Until Rosita 01/22/23 at 1931, Phase 1/2, SBP>160 and HR>60, after adequate pain control. lactated Ringers (LR) IV infusion at 25 mL/hr, Intravenous, CONTINUOUS PRN, Starting on Rosita 01/22/23 at 1056, Until Rosita 01/22/23 at 1931 [...] Until Rosita 01/22/23 at 1931, Phase 12, Local Anesthesia, for severe coughing or stridor ( laryngospasm ) meperidine (preservative free) (DEMEROL) syringe 12.5 mg 12.5 mg, Intravenous, EVERY 5 MINUTES NEEDED, 2 doses, Starting on Rosita 01/22/23 at 1238, Until Rosita 01/22/23 at 1931, Phase 04/28, for shivering, Do not user meperidine for pain control per recommendation of the [place] [employer], [place] for Safe Medication Practices (ISMP) and the [facility]. methocarbamoL (ROBAXIN) injection 1,000 mg [...] at 1238, Until Thu01/22/23 at 1931, Phase 2, nausea & vomiting ondansetron (ZOFRAN) [...] vomiting documented in this encounter Care Teams Provider Relations Manager Relationship Specialty Start Date End Date [facility] PCP - Primary Care Clinic Family Medicine 05/13/1805/05 Margot Ortega PA-C [address] [place] [address] PCP - General Family Medicine 10/16/22 documented as of this encounter
--- OUTSIDE RECORDS SUMMARY | 2023-05-15 10:47 | XMS_ITS | Referral Summary ---
Author Name Unknown Organization [facility] Address [address] [place] [address] [place] [address] Care Team Providers Care Grain Combiner Name Role Phone Margot Ortega PA-C Primary Care Provider + [place] [facility] - Unavailab le Allergies Active Allergy Reactions [...] Dates Next Due Tdap >7 yrs 12/30/2009,05/26/2008 Social History Tobacco Use Types Packs/Day Years [...] 11/17/2022 11:41 AM CDT Plan of Treatment Not on file Care Teams Grain Combiner Relationship Specialty Start Date End Date Margot Ortega PA-C [address] [place] [address] PCP - General Family Medicine 10/16/22 [place] [facility] [address] [place] [address] PCP - Primary Care Clinic 05/06/23
--- OUTSIDE RECORDS SUMMARY | 2023-05-15 10:47 | XMS_ITS | Encounter Summary ---
Author Name Unknown Organization [facility] Address [address] [place] [address] Care Team Providers Care Lie Detector Operator Name Role Phone [facility] Margot Ortega PA-C Primary Care Provider + Encounter Details Date Type Department Care Team (Late st Contact Info) Description 10/16/2022 12:00 PM CDT - 10/16/2022 12:45 PM CDT Surgery [facility] [place] [facility] [place] [address] [place] [address] Dewey Pollock MD [address] [place] [address] Dr Kaufman [address] [place] [id number] INCOMPLETE COLONOSCOPY Surgery Details Date/Time Status Location OR Service Patient Class Case Class Case Type Trauma Case? 10/16/22 12:00 PM Posted [facility] ORS 07 Gastroenterology Same Day Surgery Panel 1 Procedure LRB Anes Op Region Wound Class Comments INCOMPLETE COLONOSCOPY N/A MAC Gastrointestinal Clean Contaminated (II) Surgeon Surgeon Role Service Panel Dewey Pollock [...] Sign Reading Time Taken Comments Blood Pressure 117/83 10/16/2022 12:45 PM CDT Pulse 89 10/16/2022 12:45 PM CDT Temperature 36.2 ??C (97.2 ??F) 10/16/2022 12:37 PM C DT Respiratory Rate 16 10/16/2022 12:45 PM CDT Oxygen Saturation 97% 10/16/2022 12:45 PM CDT Inhaled Oxygen Concentration - - [...] not a medication; rather it is an mywb-hkq-xyopqfu supplement that everyone should take. Stay away from pill forms because they are expensive and contain other additives. We recommend Benefiber, Hydrocil, or freshly ground Goldenflax seed mixed with a large glass of water or juice in the morning. Questions or concerns can be directed to your physician at the following numbers: Dr. Caruso, Chano Wesley, and Tyesha: [facility]: Dr. Love: [facility]: Call your provider for the following: Uncontrolled abdominal pain Fevers over 101 degrees Vomiting Black or bloody bowel movements documented in this encounter Medications at Time of Discharge Medication Sig Dispensed Refills Start Date End Date NO MEDICATIONS 0 documented as of this encounter Nursing Notes * Ayah Pearson RN - 10/16/2022 1:35 PM CDT Katlin Curtis 1965 [phone] Discharged ambulatory to home at 1335 escorted [...] Diagnoses Orde r Schedule Test - UPT ([facility]) Lab Routine Once for 1 Occurrences starting 10/16/2022 until 10/16/2022 Scheduled Referrals Name Type Priority Associated Diagnoses Orde r Schedule Follow Up Follow Up Routine Ordered: 10/16 documented as of this encounter Procedures Procedure Name Priority Date/Time Associated Diagnosis Comments CT COLONOSCOPY FLX DX W/COLLJ SPEC WHEN PFRMD [...] ago. Providers: ? Dewey Pollock MD (Doctor) [address] [place] [address] Dr [address] ? [place] [address] Referring Provider ? Margot Kirby (Referring MD) [...] the physician, the nurse and the ? retread technician in the procedure room. Mental Status [...] years ago. Providers: Dewey Pollock MD (Doctor) [address] [place] [address] [address] [place] [address] Referring Provider Margot Kirby (Referring MD) Requesting [...] by the physician, the nurse and the retread technician in the procedure room. Mental Status [...] documented in this encounter Visit Diagnoses Diagnosis Screening for colon cancer Special screening for malignant neoplasms, colon documented in this encounter Administered Medications Inactive Administered Medications - up to 3 most recent administrations Medication Order MAR Action Action Date Dose Rate Site atropine syringe 0.4 mg 0.4 mg, Intravenous, NEEDED, 1 dose, Starting on Rosita 10/16/22 at 1240, Until Rosita 10/16/22 at 194, Phase 12, bradycardia, for HR <50, with hypotension, give atropine 0.4mg IV. Notify anesthesiologist. dexAMETHasone (DECADRON) injection 4 mg 4 mg, Intravenous, ONCE NEEDED, 1 dose, Starting on Rosita 10/16/22 at 1240, Until Rosita 10/16/22 at 194, Phase 12, for allergic reaction diphenhydrAMINE (BENADRYL) injection 25 mg 25 mg, Intravenous, ONCE NEEDED, 1 dose, Starting on Rosita 10/16/22 at 1240, Until Rosita 10/16/22 at 1947, Phase 12, for allergic reaction fentaNYL (SUBLIMAZE) injection 25-50 mcg 25-50 mcg, Intravenous, EVERY 5 MINUTES NEEDED, 18 doses, Starting on Rosita 10/16/22 at 1240, Until Rosita 10/16/22 at 194, Phase 1/2, for acute surgical pain. Up to 200 mcg. HYDROmorphone (DILAUDID) syringe 0.2-0.3 mg 0.2-0.3 mg, Intravenous, EVERY 5 MINUTES NEEDED, 2 doses, Starting on Rosita 10/16/22 at 1240, Until Rosita 10/16/22 at 1947, Phase 1/2, For acute surgical pain. Up to 0.5mg hydrOXYzine pamoate (Vistaril) capsule 25-50 mg 25-50 mg, oral, NEEDED, Starting on Rosita 10/16/22 at 1240, Until Rosita 10/16/22 at 194, Phase 12, For pain or nausea Intravenous Infuse IV fluids as ordered by surgeon, otherwise continue OR infusion @ 75-100 mL/hr until discontinued., Phase 1/2 labetaloL (NORMODYNE) injection 10 mg 10 mg, Intravenous, ONCE NEEDED, 1 dose, Starting on Rosita 10/16/22 at 1240, Until Rosita 10/16/22 at 194, Phase 1/2, SBP>160 and HR>60, after adequate pain control. lactated Ringers (LR) IV infusion 500-1,000 mL at 25 mL/hr, Intravenous, CONTINUOUS, Starting on Rosita 10/16/22 at 1115, Until Rosita 10/16/22 at 194 lactated Ringers (LR) IV infusion at 25 mL/hr, Intravenous, CONTINUOUS PRN, Starting on Rosita 10/16/22 at 1114, Until Rosita 10/16/22 at 1948 lidocaine / sod bicarb (buffered lidocaine) syringe [...] Until Rosita 10/16/22 at 194, Phase 12, Local Anesthesia, for severe coughing or stridor ( laryngospasm ) meperidine (preservative free) (DEMEROL) syringe 12.5 mg 12.5 mg, Intravenous, EVERY 5 MINUTES NEEDED, 2 doses, Starting on Rosita 10/16/22 at 1240, Until Rosita 10/16/22 at 1947, Phase 12, for shivering, Do not user meperidine for pain control per recommendation of the [place] [employer], [place] for Safe Medication Practices (ISMP) and the [facility]. methocarbamoL (ROBAXIN) injection 1,000 mg 1,000 mg, Intravenous, ONCE NEEDED, 1 dose, Starting on Rosita 10/16/22 at 1240, Until Rosita 10/16/22 at 1947, Phase 1/2, IV methocarbamol can be given for no more than 3 consecutive days. If additional IV methocarbamol is needed there should be a drug-free interval of 48 hours. midazolam (PF) (VERSED) injection 0.5-1 mg 0.5-1 mg, Intravenous, ONCE NEEDED, 1 dose, Starting on Rosita 10/16/22 at 1240, Until Rosita 10/16/22 at 1948, Phase 1/2, for restlessness ondansetron (ZOFRAN) disintegrating tablet 4 mg 4 mg, oral, ONCE NEEDED, 2 doses, Starting on Rosita 10/16/22 at 1240, Until Rosita 10/16/22 at 1948, Phase 1/2, nausea & vomiting ondansetron (ZOFRAN) injection 4 mg 4 mg, Intravenous, ONCE NEEDED, 2 doses, Starting on Rosita 10/16/22 at 1240, Until Rosita 10/16/22 at 1948, Phase 1/2, nausea & vomiting saline with benzyl alcohol injection 0.1-0.3 mL 0.1-0.3 mL, Intradermal, NEEDED, Starting on Rosita 10/16/22 at 1114, Until Rosita 10/16/22 at 1948, IV start or restart scopolamine 1mg/72 hours (1.5mg) (TRANSDERM-SCOP) patch 1 patch 1 patch, Transdermal, ONCE NEEDED, 1 dose, Starting on Rosita 10/16/22 at 1240, Until Rosita 10/16/22 at 1948, Phase 1/2, for nausea. Remove in 24 hours. documented [...] Until Rosita 10/16/22 at 1948, Phase 12, bradycardia, for HR <50, with hypotension, give atropine 0.4mg IV. Notify anesthesiologist. dexAMETHasone (DECADRON) injection 4 mg(Linked Group 1) 4 mg, Intravenous, ONCE NEEDED, 1 dose, Starting on Rosita 10/16/22 at 1240, Until Rosita 10/16/22 at 1947, Phase 12, for allergic reaction diphenhydrAMINE (BENADRYL) injection 25 mg(Linked Group 1) 25 mg, Intravenous, ONCE NEEDED, 1 dose, Starting on Rosita 10/16/22 at 1240, Until Rosita 10/16/22 at 1947, Phase 12, for allergic reaction fentaNYL (SUBLIMAZE) injection 25-50 mcg 25-50 mcg, Intravenous, EVERY 5 MINUTES NEEDED, 18 doses, Starting on Rosita 10/16/22 at 1240, Until Rosita 10/16/22 at 1947, Phase 1, for acute surgical pain. Up to 200 [...] Rosita 10/16/22 at 1947, Phase 12, For pain or nausea labetaloL (NORMODYNE) injection 10 mg 10 mg, Intravenous, ONCE NEEDED, 1 dose, Starting on Rosita 10/16/22 at 1240, Until Rosita 10/16/22 at 1947, Phase 12, SBP>160 and HR>60, after adequate pain control. lactated Ringers (LR) IV infusion at 25 mL/hr, Intravenous, CONTINUOUS PRN, Starting on Rosita 10/16/22 at 1114, Until Rosita 10/16/22 at 1948 lidocaine / sod bicarb (buffered lidocaine) syringe [...] Until Rosita 10/16/22 at 1947, Phase 1/2, Local Anesthesia, for severe coughing or stridor ( laryngospasm ) meperidine (preservative free) (DEMEROL) syringe 12.5 mg 12.5 mg, Intravenous, EVERY 5 MINUTES NEEDED, 2 doses, Starting on Rosita 10/16/22 at 1240, Until Rosita 10/16/22 at 1947, Phase 12, for shivering, Do not user meperidine for pain control per recommendation of the [place] Pain [employer], [place] for Safe Medication Practices (ISMP) and the [facility]. methocarbamoL (ROBAXIN) injection 1,000 mg 1,000 mg, Intravenous, ONCE NEEDED, 1 dose, Starting on Rosita 10/16/22 at 1240, Until Rosita 10/16/22 at 1947, Phase 12, IV methocarbamol can be given for no more than 3 consecutive days. If additional IV methocarbamol is needed there should be a drug-free interval of 48 hours. midazolam (PF) (VERSED) injection 0.5-1 mg 0.5-1 mg, Intravenous, ONCE NEEDED, 1 dose, Starting on Rosita 10/16/22 at 1240, Until Rosita 10/16/22 at 194, Phase 1/2, for restlessness ondansetron (ZOFRAN) disintegrating tablet 4 mg(Linked Group 2) 4 mg, oral, ONCE NEEDED, 2 doses, Starting on Rosita 10/16/22 at 1240, Until Rosita 10/16/22 at 1947, Phase 12, nausea & vomiting ondansetron (ZOFRAN) injection 4 mg(Linked Group 2) 4 mg, Intravenous, ONCE NEEDED, 2 doses, Starting on Rosita 10/16/22 at 1240, Until Rosita 10/16/22 at 194, Phase 1/2, nausea & vomiting saline with benzyl alcohol injection 0.1-0.3 mL 0.1-0.3 mL, Intradermal, NEEDED, Starting on Rosita 10/16/22 at 1114, Until Rosita 10/16/22 at 194, IV start or restart scopolamine 1mg/72 hours (1.5mg) (TRANSDERM-SCOP) patch 1 patch 1 patch, Transdermal, ONCE NEEDED, 1 dose, Starting on Thu10/16/22 at 1240, Until Rosita 10/16/22 at 194, Phase 1/2, for nausea. Remove in 24 hours. Linked Groups Order Group 1: diphenhydrAMINE (BENADRYL) injection 25 mgJump to med 25 mg, Intravenous, ONCE NEEDED, 1 dose, Starting on Rosita 10/16/22 at 1240, Until Rosita 10/16/22 at 194, Phase 1/2, for allergic reaction And dexAMETHasone (DECADRON) injection 4 mgJump to med 4 mg, Intravenous, ONCE NEEDED, 1 dose, Starting on Rosita 10/16/22 at 1240, Until Rosita 10/16/22 at 194, Phase 1/2, for allergic reaction Group 2: ondansetron (ZOFRAN) injection 4 mgJump to med 4 mg, Intravenous, ONCE NEEDED, 2 doses, Starting on Rosita 10/16/22 at 1240, Until Rosita 10/16/22 at 194, Phase 1/2, nausea & vomiting Or ondansetron (ZOFRAN) disintegrating tablet 4 mgJump to med 4 mg, oral, ONCE NEEDED, 2 doses, Starting on Thu10/16/22 at 1240, Until Rosita 10/16/22 at 194, Phase 1/2, nausea & vomiting documented in this encounter Care Teams Lie Detector Operator Relationship Specialty Start Date End Date [facility] PCP - Primary Care Clinic Family Medicine 05/13/1805/05 Margot Ortega PA-C [address] [place] [address] PCP - General Family Medicine 10/16/22 documented as of this encounter
== END 2023-05-14 08:41 | disposition home or self-care (01) ==
LOC: NFLDREF 05-15 10:43
PROVIDERS: PCP Family Medicine; Visit Provider Physician Assistant
DX: I10 Essential (primary) hypertension (principal); Z13.6 Encounter for screening for cardiovascular disorders
CPT/HCPCS: 80053; 80061

== ENCOUNTER 2023-08-05 07:51 | Outpatient (CLI) | payer OTHER, SELFPAY ==
--- OUTSIDE RECORDS SUMMARY | 2023-08-05 07:54 | XMS_ITS | Referral Summary ---
Author Name Unknown Organization [facility] Address [address] [place] [address] [place] [address] Care Team Providers Care White Sugar Supervisor Name Role Phone Margot Ortega PA-C Primary Care Provider + Allergies Active Allergy Reactions Criticality Noted Date Comments Ceftriaxone Rash Medium 05/20/2018 Ciprofloxacin Rash Medium 05/20/2018 Lisinopril Hives Medium 12/18/2015 Medications Medication Sig Dispensed Refills Start Date End Date Status NO MEDICATIONS Active Active Problems Problem Noted Date Diagnosed [...] Immunizations Name Administration Dates Next Due Tdap 12/30/2009,05/26/2008 Social History Tobacco Use Types Packs/Day [...] CDT Plan of Treatment Not on file Procedures Procedure Name Priority Date/Time Associated Diagnosis Comments ASC COLONOSOPY 01/22/2023 12:11 PM CDT BASIC METABOLIC PANEL-ISTAT OP Routine 05/18/2018 12:19 PM HEALTH TECHNICIAN Urinary tract infection with hematuria, site unspecified LIPID PROFILE CASCADE OP STAT 05/25/2017 10:23 AM HEALTH TECHNICIAN from Last 3 Months or Most Recently Relevant to Health Maintenance Results * ASC COLONOSOPY (01/22/2023 12:11 PM [...] 5 years ago. Attempted colonscopy ? last September but could not proceed due to inadequate prep. Providers: ? Dewey Pollock MD (Doctor) [address] ? [place] [address] Referring Provider ? Margot Kirby (Referring MD) [...] verified by the physician, the nurse, the tooling supervisor ? and the certified hyperbaric technician in the procedure room. Mental ? [...] to inadequateprep. Providers: Dewey Pollock MD (Doctor) [address] [place] [address] [place] [address] Referring Provider Margot Kirby (Referring MD) Requesting [...] the physician, the nurse, theanesthetist and the certified hyperbaric technician in the procedure room. Mental Status [...] seconds Dewey Pollock MD PROCEDURE ORDERABLE TEST * (ABNORMAL) BASIC METABOLIC PANEL-ISTAT OP (05/18/2018 12:19 PM HEALTH TECHNICIAN) SODIUM OP 135(L) 136 - 145 mmol/L 05/18/2018 12:30 PM HEALTH TECHNICIAN [facility] POTASSIUM OP 3.7 3.5 - 5.1 mmol/L 05/18/2018 12:30 PM HEALTH TECHNICIAN [facility] CHLORIDE OP 99 98 - 107 mmol/L 05/18/2018 12:30 PM HEALTH TECHNICIAN [facility] Calcium, Ionized OP 1.12 1.12 - 1.32 mmol/L 05/18/2018 12:30 PM HEALTH TECHNICIAN [facility] CARBON DIOXIDE OP 22 21 - 32 mmol/L 05/18/2018 12:30 PM HEALTH TECHNICIAN [facility] GLUCOSE OP 103 70 - 110 mg/dL 05/18/2018 12:30 PM HEALTH TECHNICIAN [facility] BUN (UREA NITRO) OP 14 7 - 18 mg/dL 05/18/2018 12:30 PM HEALTH TECHNICIAN [facility] CREATININE OP 1.30(H) 0.60 - 1.00 mg/dL 05/18/2018 12:30 PM HEALTH TECHNICIAN [facility] EST GFR (CKD-EPI) OP 43(L) >60 mL/min 05/18/2018 12:30 PM HEALTH TECHNICIAN [facility] EST GFR IF AM OP 52(L) >60 mL/min 05/18/2018 12:30 PM HEALTH TECHNICIAN [facility] Blood Venipuncture / Unknown 05/18/2018 12:19 PM HEALTH TECHNICIAN 05/18/2018 12:19 PM HEALTH TECHNICIAN Narrative [facility] - 05/18/2018 12:30 PM HEALTH TECHNICIAN Hydroxyurea, Thiocyanate, Glycolic Acid, and [place] cause interference. ??Use an alternative testing method in their presence. Mary nAne Nixon PA-C CHEMISTRY ORDERABLE Performing Organization Address City/[facility]/ZIP Co de Phone Number [facility] [address] [facility] [place] [address] * (ABNORMAL) LIPID PROFILE CASCADE OP (05/25/2017 10:23 AM HEALTH TECHNICIAN) CHOL/HDL RATIO OP 3.8 NO [facility] LDL CHOL, CALC OP 134(H) 80 - 130 mg/dL [facility] Comment:Normal Range: Less t wyatt 130 mg/dL or as directed by your physician. HDL CHOLESTEROL OP 53 40 - 85 mg/dL [facility] CHOLESTEROL OP 202(H) 125 - 200 mg/dL [facility] PROFILE OP 76 45 - 150 mg/dL [facility] 05/25/2017 10:2 3 AM HEALTH TECHNICIAN 05/25/2017 10:23 AM HEALTH TECHNICIAN Margot Kirby PA-C CHEMISTRY ORDERA BLE Performing Organization Address City/[facility]/ZIP Co de Phone Number [facility] [address] [place] [address] [facility] [address] [place] [address] from Last 3 Months or Most Recently Relevant to Health Maintenance Care Teams White Sugar Supervisor Relationship Specialty Start Date End Date Margot Ortega PA-C [address] [place] [address] PCP - General Family Medicine 10/16/22
--- OUTSIDE RECORDS SUMMARY | 2023-08-05 07:54 | XMS_ITS | Clinical Summary ---
Author Name Unknown Organization [facility] Address [address] [place] [address] [place] [address] Care Team Providers Care [employer] Name Role Phone Margot Ortega PA-C Primary [...] Name Administration Dates Next Due Tdap 12/30/2009,05/26/2008 Family History Medical History Relation Comments [...] Last Done Comments Hepatitis C Screening 1965 Anxiety Screening (CONCEPCIÓN-2) 1967 Depression Follow-Up (PHQ-9) 1967 Zoster Vaccine (1 of 2) 2016 Pap Smear 12/20/2017 12/20/2012 (Prev iously completed) Lipid Screening 05/25/2018 05/25/2017 Adult Tetanus Booster 12/31/2019 12/30/2009, 009 Diabetes Screening 05/18/2021 05/18/2018, 0 05/25/2017, 01/21/2016 Mammogram Screening 06/20/2021 06/20/2020, 05/12/2019, 04/29/2018, Additional history exists COVID-19 Vaccine ( season) 2022 Yearly Review of HCD 10/21/2023 10/21/2022, 09/05/2022, 05/13/2018, Additional history exists Influenza Vaccine (Season Ended) 2023 03/15/2019 (Declined), 05/13/2018 (Declined) Colonoscopy 01/22/2033 01/22/2023, 10/16/2022 Pneumococcal <65 Aged Out No longer e ligible based on patient's age to complete this topic Procedures Procedure Name Priority Date/Time Associated Diagnosis Comments [facility] COLONOSOPY 01/22/2023 12:11 PM CDT BASIC METABOLIC PANEL-ISTAT OP Routine 05/18/2018 12:19 PM BOND ANALYST Urinary tract infection with hematuria, site unspecified LIPID PROFILE CASCADE OP STAT 05/25/2017 10:23 AM BOND ANALYST from Last 3 Months or Most Recently [...] prep. Providers: ? Dewey Pollock MD (Doctor) [address] [place] [address] [address] ? [place] [address] Referring Provider ? Margot Kirby (Referring ) [...] verified by the physician, the nurse, the kiln mechanic ? and the pc technician in the procedure room. Mental ? [...] to inadequateprep. Providers: Dewey Pollock MD (Doctor) [address] [place] [address] [place] [address] Referring Provider Margot Kirby (Referring MD) Requesting [...] the physician, the nurse, theanesthetist and the pc technician in the procedure room. Mental Status [...] BASIC METABOLIC PANEL-ISTAT OP (05/18/2018 12:19 PM BOND ANALYST) SODIUM OP 135(L) 136 - 145 mmol/L 05/18/2018 12:30 PM [facility] POTASSIUM OP 3.7 3.5 - 5.1 mmol/L 05/18/2018 12:30 PM [facility] CHLORIDE OP 99 98 - 107 mmol/L 05/18/2018 12:30 PM [facility] Calcium, Ionized OP 1.12 1.12 - 1.32 mmol/L 05/18/2018 12:30 PM [facility] CARBON DIOXIDE OP 22 21 - 32 mmol/L 05/18/2018 12:30 PM [facility] GLUCOSE OP 103 70 - 110 mg/dL 05/18/2018 12:30 PM [facility] BUN (UREA NITRO) OP 14 7 - 18 mg/dL 05/18/2018 12:30 PM [facility] CREATININE OP 1.30(H) 0.60 - 1.00 mg/dL 05/18/2018 12:30 PM [facility] EST GFR (CKD-EPI) OP 43(L) >60 mL/min 05/18/2018 12:30 PM [facility] EST GFR IF AM OP 52(L) >60 mL/min 05/18/2018 12:30 PM [facility] Blood Venipuncture / Unknown 05/18/2018 12:19 PM BOND ANALYST 05/18/2018 12:19 PM [facility] Narrative [facility] - 05/18/2018 12:30 PM [facility] Hydroxyurea, Thiocyanate, Glycolic Acid, and [place] cause interference. ??Use an alternative testing method in their presence. Mary Anne Nixon PA-C CHEMISTRY ORDERABLE [facility] [address] [place] [address] * (ABNORMAL) LIPID PROFILE CASCADE OP (05/25/2017 10:23 AM BOND ANALYST) CHOL/HDL RATIO OP 3.8 NO RTH [facility] LDL CHOL, CALC OP 134(H) 80 - 130 mg/dL [facility] Comment:Normal Range: Less t wyatt 130 mg/dL or as directed by your physician. HDL CHOLESTEROL OP 53 40 - 85 mg/dL [facility] CHOLESTEROL OP 202(H) 125 - 200 mg/dL [facility] TRIGLYCERIDES PROFILE OP 76 45 - 150 mg/dL [facility] 05/25/2017 10:2 3 AM BOND ANALYST 05/25/2017 10:23 AM BOND ANALYST Margot Kirby PA-C CHEMISTRY ORDERA BLE [facility] [address] [place] [address] [facility] [address] [facility] [place] [address] from Last 3 Months or Most Recently Relevant to Health Maintenance Care Teams [employer] Relationship Specialty Start Date End Date Margot Ortega PA-C [address] [place] [address] (work) PCP - General Family Medicine 10/16/22
--- NOTE | 2023-08-05 08:15 | MM_ITS ---
Patient: KATHERIN RYAN Facility:?[facility] Patient ID:?[id number] Site Patient ID:?[id number]. Site :?[id number] Study:?XRay-Breast Bilateral 3D W/CAD-08/05/2023 8:31:44 AM Ordering Physician:Adela July Final Report: BILATERAL SCREENING MAMMOGRAM WITH COMPUTER-AIDED DETECTION AND TOMOSYNTHESIS TECHNIQUE: CC and MLO views were obtained. These mammographic images have been obtained using full-field digital technique. These mammographic images were interpreted with the benefit of computer-aided detection. Breast tomosynthesis was used in this interpretation. COMPARISON FILM: 07/28/22, 06/20/20, 05/09/19. FINDINGS: There are scattered areas of fibroglandular density. IMPRESSION: There is no radiographic evidence for malignancy. ASSESSMENT: BI-RADS Category 1: Negative RECOMMENDATION: Routine screening mammogram in 1 year. A lay language report of this examination will be provided to the patient. BEAU GARZA M.D. Diagnostic Radiologist [email or web address] ROBERT/ifrah D& Transcribed: 4:[address]/Dictated by: Beau Garza MD @ 08/05/2023 10:08:00 AM Signed by:?Beau Garza MD @08/06/2023 5:29:56 AM (Electronic Signature)
== END 2023-08-05 07:52 | disposition home or self-care (01) ==
PROVIDERS: PCP Family Medicine; Visit Provider Physician Assistant
DX: Z12.31 Encounter for screening mammogram for malignant neoplasm of breast (principal)
CPT/HCPCS: 77063; 77067

== ENCOUNTER 2024-05-11 10:41 | Outpatient (CLI) | payer OTHER, SELFPAY | END 2024-05-11 10:42 | disposition home or self-care (01) | LOC: NFLDREF 05-16 03:52 | PROVIDERS: PCP Family Medicine; Referring Provider Family Medicine; Visit Provider Family Medicine | DX: I10 Essential (primary) hypertension (principal); E78.00 Pure hypercholesterolemia, unspecified; Z13.29 Encounter for screening for other suspected endocrine disorder | CPT/HCPCS: 80053; 80061; 84443 ==

== ENCOUNTER 2024-10-04 07:48 | Outpatient (CLI) | payer OTHER, SELFPAY ==
--- NOTE | 2024-10-04 08:15 | CRLHL7_ITS ---
For Patients: As a result of the Century Cures Act, medical imaging exams and procedure reports are released immediately into your electronic medical record. You may view this report before your referring provider. If you have questions, please contact your health care provider. INDICATION: BILATERAL SCREENING MAMMOGRAM, ASYMPTOMATIC 59 Y/O FEMALE COMPARISON: 08/05/2023, 07/28/2022, 06/20/2020 TECHNIQUE: Digital mammogram in CC and MLO projections including computer-aided detection (CAD) and tomosynthesis. BREAST COMPOSITION: There are scattered areas of fibroglandular density. FINDINGS: No suspicious findings. ASSESSMENT: BI-RADS 1 Negative RECOMMENDATION: Annual screening mammogram. A lay language report of this examination will be provided to the patient. Dictated by: Albert Guerra MD @ 10/06/2024 10:59:00 (Electronically Signed)
== END 2024-10-04 07:49 | disposition home or self-care (01) ==
LOC: MAMMO 07:49
PROVIDERS: PCP Family Medicine; Visit Provider Family Medicine
DX: Z12.31 Encounter for screening mammogram for malignant neoplasm of breast (principal)
CPT/HCPCS: 77063; 77067